=== PATIENT | male | born 1955 | race Caucasian/White ===

== ENCOUNTER 2017-05-14 07:22 | Day surgery (SDC) | payer OTHER ==
[~2017-05-14] VITALS: Ht 188 cm; Wt 79.8 kg
[2017-05-14 07:45] VITALS: Ht 188 cm; Wt 79.8 kg
[2017-05-14 08:19] VITALS: BP 115/79; PULSE 79; RESP 10
[2017-05-14] MEDS ORDERED: MIDAZOLAM 1 MG/ML 2 ML INJ ONE ×2 (09:05)
[2017-05-14] MEDS ORDERED: FENTAnyl 50 MCG/ML VIAL ONE (09:05)
--- NOTE | 2017-05-14 09:15 | OPPN ---
Date/Time of Note Date/Time of Note DATE: 05/14/17 TIME: 09:10 Proc Note GI Procedure date: May 14, 2017 Pre-procedure Diagnosis Screening colonoscopy patient's mother had colon polyps Post-procedure Diagnosis Multiple polyps noted all the way from the rectum up to the cecum biopsies were done one polyp was removed from 45 cm from the anus Operation Performed Colonoscopy Surgeon: MARIUM WALLACE MD Anesthesia Type: moderate sedation Tourniquet Time: None Estimated blood loss: none (None) Transfusion Required: no Specimens Multiple polyps were noted from the rectum to the cecum biopsies were obtained from the 5 cm from the anus 35 cm from the anus 45 cm from the anus splenic flexure and cecum Grafts/Implants None Tubes/Drains None Complications: no Complications None Pt Condition post procedure: stable Disposition: other Indications Family history of colon polyp screening colonoscopy Operative\Procedure Findings After informed written consent is obtained patient was put on left lateral position 3 mg Versed 50 mcg of fentanyl was given as intravenous anesthesia When the patient become somnolent Olympus video colonoscope was introduced into the rectum and advanced all the way to the cecum Flat polyp was noted at 5 cm from the anus this was biopsied. It raised polyp was noted at 35 cm from the anus this was biopsied At 45 cm from the anus there was a polyp located in a wide stalk on the fold this measured about 1 cm in diameter by using the hot snare polypectomy was performed Splenic flexure showed multiple polyps in the localized area biopsies were done The rest of the colon was examined transverse colon showed multiple polyps scattered along the mucosal surface Large polyp at least about a 1/2 cm diameter noted in a flat surface of the cecum this was biopsied Time scope was withdrawn no additional abnormalities detected and minimal external hemorrhoids were noted and the procedure was terminated. Plan For the pathology Possible the patient may need a total collectomy MARIUM WALLACE MD May 14, 2017 09:15
[2017-05-14 09:25] VITALS: BP 137/88; PULSE 83; RESP 14
== END 2017-05-14 13:27 | disposition home or self-care (01) ==
LOC: GIL 07:22
PROVIDERS: ATTEND Internal Medicine Gastroenterology
DX: Z12.11 Encounter for screening for malignant neoplasm of colon (principal); K63.5 Polyp of colon; K62.1 Rectal polyp
CPT/HCPCS: 45380; 88305; J2250; J3010; Z7610